=== PATIENT | female | born 1950 | race Caucasian/White ===

== ENCOUNTER 2020-03-16 15:10 | Emergency (ER) | payer MEDICARE, MEDICAID ==
[~2020-03-16] VITALS: Ht 162.6 cm; Wt 70.0 kg
[2020-03-16 17:48] LABS: BASOPHILS % 0.6 % (0.0-2.0); HEMATOCRIT. 43.4 % (36.0-48.0); HEMOGLOBIN. 14.4 g/dL (12.0-16.0); LYMPHOCYTES % 35.3 % (20.0-50.0); MEAN CORPUSCULAR HEMOGLOBIN 28.9 pg (28.0-32.0); MEAN CORPUSCULAR VOLUME 87.1 fL (81.0-99.0); MEAN PLATELET VOLUME 8.7 fl (7.4-10.4); MONOCYTES % 9.1 % (2.0-8.0); PLATELET 197 x1000/uL (130-400); RED BLOOD CELL COUNT 4.98 mill/uL (4.2-5.4); RED CELL DISTRIBUTION WIDTH 14.9 % (11.6-14.6)
[2020-03-16 17:54] LABS: CHLORIDE 106 mEq/L (98-107)
[2020-03-16 19:41] VITALS: BP 165/95
== END 2020-03-16 19:42 | disposition home or self-care (01) ==
LOC: ER 15:10
DX: Z76.0 Encounter for issue of repeat prescription (principal); R07.9 Chest pain, unspecified; E11.9 Type 2 diabetes mellitus without complications; I10 Essential (primary) hypertension
CPT/HCPCS: 36415; 80053; 84484; 85025; 93005; 99284

== ENCOUNTER 2021-06-16 13:21 | Emergency (ER) | payer BC, MEDICAID ==
[~2021-06-16] VITALS: Ht 160 cm; Wt 73.0 kg
[2021-06-16] MEDS ORDERED: METF-416 PO (13:47)
[2021-06-16] MEDS ORDERED: BISO5TAB13 PO (13:48)
[2021-06-16] MEDS ORDERED: HYDR25TA PO (13:48)
[2021-06-16 15:47] LABS: BASOPHILS % 0.2 % (0.0-2.0); HEMATOCRIT. 42.3 % (36.0-48.0); HEMOGLOBIN. 13.7 g/dL (12.0-16.0); LYMPHOCYTES % 38.3 % (20.0-50.0); MEAN CORPUSCULAR VOLUME 86.4 fL (81.0-99.0); MEAN PLATELET VOLUME 8.4 fl (7.4-10.4); MONOCYTES % 8.4 % (2.0-8.0); NEUTROPHILS % 53.1 % (40.0-76.0); PLATELET 224 x1000/uL (130-400); RED BLOOD CELL COUNT 4.89 mill/uL (4.2-5.4); RED CELL DISTRIBUTION WIDTH 13.8 % (11.6-14.6)
[2021-06-16 15:48] LABS: CHLORIDE 103 mEq/L (98-107)
[2021-06-16] MEDS ORDERED: HYDRALAZINE 20MG/ML VIAL IV ONE (18:00)
[2021-06-16] MEDS ORDERED: HYDR25TA MT (19:40)
[2021-06-16] MEDS ORDERED: METF-416 MT (19:41)
[2021-06-16] MEDS ORDERED: BISO5TAB13 MT (19:42)
[2021-06-16 20:00] VITALS: BP 183/84
== END 2021-06-16 20:30 | disposition home or self-care (01) ==
LOC: ER 14:42
DX: R07.89 Other chest pain (principal); I10 Essential (primary) hypertension; E11.9 Type 2 diabetes mellitus without complications; Z98.890 Other specified postprocedural states
CPT/HCPCS: 36415; 71045; 80053; 82962; 83690; 83880; 84484; 85025; 93005; 96374; 99285; J0360